=== PATIENT | female | born 1995 | race Caucasian/White ===

== ENCOUNTER 2021-07-02 16:40 | Emergency (ER) | payer SELFPAY ==
[2021-07-02 18:48] VITALS: BP 126/76; PULSE 77; RESP 18; TEMP 36.8; O2SAT 99; BMI 23.4
--- NOTE | 2021-07-02 18:51 | ECG_ITS ---
Test Reason : anxiety Blood Pressure : / mmHG Vent. Rate : 063 BPM Atrial Rate : 063 BPM P-R Int : 104 ms QRS Dur : 078 ms QT Int : 376 ms P-R-T Axes : 026 043 057 degrees QTc Int : 384 ms Sinus rhythm with sinus arrhythmia with short [place] Otherwise normal ECG No previous ECGs available Referred By: Generic ED Physician Electronically Signed By:SANDRA PEDRAZA
[2021-07-02] MEDS: Ondansetron ODT 4 MG TAB.RAPDIS TRANSLINGU (18:52)
[2021-07-03 01:22] VITALS: BP 99/68; PULSE 66; O2SAT 98
--- NOTE | 2021-07-03 01:28 | ED.PSYCH ---
HPI - Psych General Chief Complaint: General Medical Stated Complaint: Anxiety Time Seen by Provider: 07/03/21 01:26 Source: patient Mode of arrival: ambulatory Limitations: no limitations History of Present Illness HPI Narrative: Patient's history of depression insomnia anxiety PTSD asking medication came here today for anxiety denies any suicide ideation or homicidal feelings had seen the in today for recent thoughts and panic attack has not seen psychiatrists here not on any medication patient able to eat anything for last few days unable to sleep increased anxious had only few soups lost about 40 lb in last 1 year Related Data Previous Rx's Medication Instructions Recorded lorazepam 1 mg tablet (Ativan) 1 mg PO BID PRN #14 tab 07/03/21 Allergies Allergy/AdvReac Type Severity Reaction Status Date / Time No Known Allergies Allergy Verified 07/03/21 01:34 Review of Systems Review of Systems: Yes all other systems are reviewed and are negative [facility] Past Medical History Medical History (Updated 07/03/21 @ 01:42 by Parveen Vieyra MD) Anxiety Depressed Insomnia Social History Social History Advance Directives: No Advance Directives Information Provided: No Patient : No Physical Exam Vital Signs: Vital Signs: Last Vital Signs Temp 98.2 F 07/02/21 18:48 Pulse 66 07/03/21 01:22 Resp 18 07/02/21 18:48 BP 99/68 07/03/21 01:22 Pulse Ox 98 07/03/21 01:22 BMI result Body Mass Index 23.4 Appearance: Alert. Oriented X3. No acute distress. Eyes: PERRLA, No Nystagmus ENT: Pharynx normal. Oral Mucosa moist Neck: Normal inspection. Neck supple. CVS: Normal heart rate and rhythm. Pulses normal. Respiratory: No respiratory distress. Equal air entry bilateral, no wheezing/rales/rhonchi Abdomen: Soft and nontender. Bowel sounds are present, no mass palpable, no CVA tenderness Skin: Skin warm and dry. Normal skin color. Normal skin turgor. Extremities: No lower extremity edema. No calf tenderness psych: Anxious denies any suicidal ideation from her feeling no depression no hallucination Neuro: Oriented X 3. No motor deficit. No sensory deficit.No cerebellar signs , cranial nerves II-XII intact MDM - Psych Lab Data Result diagrams: 07/03/21 01:32 07/03/21 01:32 Labs: Lab Results 07/03/21 Range/Units 01:32 WBC 5.2 (4.8-10.8) X10*3/uL RBC 4.69 (4.20-5.50) X10*6/uL Hgb 12.2 (12.0-16.0) g/dl Hct 37.9 (37.0-47.0) % MCV 80.8 (80.0-98.0) fL MCH 26.0 L (27.0-33.0) pg MCHC 32.2 (31.0-35.0) g/dl RDW 12.8 (11.0-16.0) % Plt Count 221 (160-400) X10*3/uL MPV 10.3 (9.4-12.3) fL Immature Gran % (Auto) 0.0 (0.0-0.4) % Neut % (Auto) 50.0 (45-73) % Lymph % (Auto) 38.8 (20-40) % [place] % (Auto) 9.1 (2-11) % Eos % (Auto) 1.7 (0-4) % Baso % (Auto) 0.4 (0-2) % Lymph # (Auto) 2.0 (1.2-4.9) X10*3/uL [place] # (Auto) 0.5 (0.1-1.2) X10*3/uL Eos # (Auto) 0.1 (0.0-0.4) X10*3/uL Baso # (Auto) 0.0 (0.0-0.2) X10*3/uL Abs Immat Gran (auto) 0.00 (0.00-0.03) X10*3/uL Absolute Neuts (auto) 2.6 (2.0-8.3) x10*3/uL Absolute Nucleated RBC 0.000 (0.0-0.012) X10*3/uL Nucleated RBC % (auto) 0.0 (0.0-0.2) /100WBC Discharge Plan Discharge Clinical Impression: Anxiety associated with depression Patient Disposition: Home, Self-Care Instructions: Panic Disorder (ED), Anxiety (ED) Additional Instructions: Drink plenty of fluids take medication for anxiety See a psychiatrist as scheduled Prescriptions: New lorazepam [Ativan] 1 mg tablet 1 mg PO BID PRN (Reason: anxiety) Qty: 14 RF: 0
[2021-07-03 01:36] LABS: MANUAL DIFF FLAG NO
[2021-07-03 01:37] LABS: Basophils Percent Auto 0.4 % (0-2); Eosinophils Absolute Auto 0.1 X10*3/uL (0.0-0.4); Eosinophils Percent Auto 1.7 % (0-4); Hematocrit 37.9 % (37.0-47.0); Hemoglobin 12.2 g/dl (12.0-16.0); Lymphocytes Percent Auto 38.8 % (20-40); Mean Corpuscular HGB Conc 32.2 g/dl (31.0-35.0); Mean Corpuscular Volume 80.8 fL (80.0-98.0); Mean Platelet Volume 10.3 fL (9.4-12.3); Monocytes Absolute Auto 0.5 X10*3/uL (0.1-1.2); Monocytes Percent Auto 9.1 % (2-11); Neutrophils Absolute Auto 2.6 x10*3/uL (2.0-8.3); Platelet Count 221 X10*3/uL (160-400); Red Blood Count 4.69 X10*6/uL (4.20-5.50); Red Cell Distribution Width 12.8 % (11.0-16.0); White Blood Count 5.2 X10*3/uL (4.8-10.8)
[2021-07-03] MEDS: ALPRAZolam 0.5 MG TABLET PO (01:41)
[2021-07-03 01:52] LABS: COVID-19 Test Negative (Negative); IDNOW Serial# 9DD0AD1C
[2021-07-03 01:57] LABS: Alanine Aminotransferase 16 U/L (0-31); Alkaline Phosphatase 42 U/L (39-117); Anion Gap 12 (12-20); Aspartate Amino Transferase 18 U/L (5-31); Bilirubin Total 0.6 mg/dL (0.0-1.0); Blood Urea Nitrogen 7 mg/dL (9-16); Calcium 9.1 mg/dL (8.4-10.2); Carbon Dioxide 26 mmol/L (22-29); Chloride 106 mmol/L (96-108); Estimated Glomerular Filt Rate > 60; Glucose Random 88 mg/dL (60-115); Potassium 3.8 mmol/L (3.3-5.1); Sodium 140 mmol/L (135-145); Total Protein 6.7 g/dL (6.5-8.0)
[2021-07-03 02:19] VITALS: RESP 16
== END 2021-07-03 02:19 | disposition home or self-care (01) ==
PROVIDERS: Emergency Provider Internal Medicine
DX: F41.8 Other specified anxiety disorders (principal); Z20.822 Contact with and (suspected) exposure to COVID-19
CPT/HCPCS: 36415; 80053; 85025; 87635; 93005; 99283; 99284

== ENCOUNTER 2022-09-10 08:02 | Outpatient (REF) | payer MEDICAID, SELFPAY ==
--- NOTE | ~2022-09-10 | US_ITS ---
EXAMINATION: US DIAGNOSTIC ULTRASOUND BREAST, LEFT CLINICAL INFORMATION: Left subareolar mass. Patient had painful mass and was treated with antibiotics with improvement in symptomatology and palpable region.. COMPARISON: None available.. TECHNIQUE: Ultrasound of the breast is performed with real-time escalante scale imaging and color Doppler. FINDINGS: There is no focal suspicious finding. There is no solid mass, architectural abnormality, duct ectasia, or edema in the soft tissue planes. Results are discussed with the patient at time of visit. US/US breast LT limited IMPRESSION: No suspicious left breast mass in region of palpable abnormality. ASSESSMENT: BI-RADS 1: Negative RECOMMENDATION: Clinical follow-up
== END 2022-09-10 08:03 | disposition home or self-care (01) ==
LOC: HO.MAMMO 08:02
PROVIDERS: Visit Provider Emergency Medicine
DX: N63.42 Unspecified lump in left breast, subareolar (principal)
CPT/HCPCS: 76642

== ENCOUNTER 2023-01-24 10:27 | Outpatient (REF) | payer MEDICAID, SELFPAY | END 2023-01-24 10:28 | disposition home or self-care (01) | LOC: HO.CHCLNP 10:27 | PROVIDERS: Visit Provider Family Medicine | DX: Z12.4 Encounter for screening for malignant neoplasm of cervix (principal) | CPT/HCPCS: 88142 ==

== ENCOUNTER 2023-09-27 16:15 | Outpatient (REF) | payer MEDICAID, SELFPAY ==
[2023-09-29 23:54] LABS: C. trachomatis RNA TMA NOT DETECTED (NOT DETECTED); N. gonorrhoeae RNA TMA NOT DETECTED (NOT DETECTED)
== END 2023-09-27 16:16 | disposition home or self-care (01) ==
LOC: HO.CHCLNP 16:15
PROVIDERS: Visit Provider Family Medicine
DX: N76.0 Acute vaginitis (principal)
CPT/HCPCS: 36415; 81513; 87491; 87591

== ENCOUNTER 2023-11-07 13:27 | Outpatient (REF) | payer MEDICAID, SELFPAY ==
[2023-11-07 15:40] LABS: Bacterial Vaginosis PCR POSITIVE (Negative); Candida Group PCR DETECTED (Not Detect); Candida glab krusei PCR DETECTED (Not Detect); Trichomonas vaginalis PCR NOT DETECTED (Not Detect)
[2023-11-07 16:09] LABS: CT PCR NOT DETECTED (Not Detect.); NG PCR NOT DETECTED (Not Detect.)
== END 2023-11-07 13:28 | disposition home or self-care (01) ==
LOC: HO.CHCLNP 13:27
PROVIDERS: Visit Provider Family Medicine
DX: N76.0 Acute vaginitis (principal)
CPT/HCPCS: 0352U; 0353U

== ENCOUNTER 2024-01-10 11:50 | Outpatient (REF) | payer MEDICAID, SELFPAY ==
[2024-01-10 14:01] LABS: MANUAL DIFF FLAG NO
[2024-01-10 14:05] LABS: Basophils Percent Auto 0.9 % (0-2); Eosinophils Absolute Auto 0.1 X10*3/uL (0.0-0.4); Eosinophils Percent Auto 3.2 % (0-4); Hematocrit 39.3 % (37.0-47.0); Hemoglobin 12.8 g/dl (12.0-16.0); Imm Gran Abs Auto 0.01 X10*3/uL (0.00-0.03); Imm Gran Pct Auto 0.2 % (0.0-0.4); Lymphocytes Absolute Auto 1.6 X10*3/uL (1.2-4.9); Lymphocytes Percent Auto 37.1 % (20-40); Mean Corpuscular HGB Conc 32.6 g/dl (31.0-35.0); Mean Corpuscular Hemoglobin 27.1 pg (27.0-33.0); Mean Corpuscular Volume 83.3 fL (80.0-98.0); Mean Platelet Volume 11.3 fL (9.4-12.3); Monocytes Absolute Auto 0.4 X10*3/uL (0.1-1.2); Monocytes Percent Auto 8.3 % (2-11); Neutrophils Absolute Auto 2.2 x10*3/uL (2.0-8.3); Neutrophils Percent Auto 50.3 % (45-73); Platelet Count 189 X10*3/uL (160-400); Red Blood Count 4.72 X10*6/uL (4.20-5.50); Red Cell Distribution Width 14.2 % (11.0-16.0); White Blood Count 4.3 X10*3/uL (4.8-10.8)
== END 2024-01-10 11:51 | disposition home or self-care (01) ==
LOC: HO.CHCLDS 11:50
PROVIDERS: Visit Provider Student in an Organized Health Care Education/Training Program
DX: T78.40XA Allergy, unspecified, initial encounter (principal); X58.XXXA Exposure to other specified factors, initial encounter; Y93.9 Activity, unspecified; Y92.9 Unspecified place or not applicable; Y99.9 Unspecified external cause status
CPT/HCPCS: 36415; 85025

== ENCOUNTER 2024-12-13 12:55 | Outpatient (REF) | payer MEDICAID, SELFPAY ==
--- OUTSIDE RECORDS SUMMARY | 2024-12-13 15:23 | XMS_ITS | Clinical Summary ---
Author Organization [email or web address] Address [address] [place] [address] Care Team Providers Care Quality Control Inspector Name Role Phone Araceli Hoyos MD Primary Care Provider [phone] Allergies Active Allergy Reactions Criticality Noted Date Comments Coconut Fatty Acid Hives 09/08/2022 Mushroom Extract Complex (Obsolete) 12/13/2022 Medications albuterol (Ventolin HFA) 108 (90 Base) MCG/ACT inhaler INHALE 2 PUFFS EVERY 4 HOURS IF NEEDED FOR WHEEZING. 18 g 3 4 Active loratadine (Claritin) 10 MG tablet TAKE 1 TABLET BY MOUTH EVERY DAY 90 tablet 1 4 Active ergocalciferol (Vitamin D2) 1.25 MG (92239 UT) capsule TAKE 1 CAPSULE BY MOUTH ONE TIME PER WEEK 12 capsule 5 Active aspirin-acetam inophen-caffei ne (Excedrin Migraine) 250-250-65 MG tablet Take 1 tablet by mouth every 6 (six) hours if needed for headaches. 30 tablet 3 5 01/11/20 25 Active ergocalciferol (Vitamin D2) 1.25 MG (52558 UT) capsule Take 1 capsule (1.25 mg) by mouth 1 (one) time per week. 12 capsule 5 11/17/19 25 Discontinued Active Problems Problem Noted Date Diagnosed Date Reactive airway disease 03/01/2024 Other fatigue 03/01/2024 Physical exam, annual 03/01/2024 Assessment & Plan (03/01/2024 11:29 AM EDT): 28 y.o. here for her annual physical examination. Reviewed Care Gaps Vaccinations: declined today Reviewed and updated as needed PMH, PSH, PFH, PsocHx Reviewed BP and weight, nl weight and BP Allergy history, latex 09/27/2023 Tibia fracture 12/13/2022 History of iron deficiency 12/13/2022 Depression 12/13/2022 Anxiety 12/13/2022 Numbness and tingling in both hands 12/13/2022 Assessment & Plan (12/13/2022 11:40 AM EDT): Patient with strong family history of carpal tunnel, experiencing polyarthralgia, bilateral hand tingling and numbness with associated cramps. Will send for EMG for further evaluation. Polyarthralgia 12/13/2022 Excessive sweating 11/01/2022 Chronic low back pain 11/01/2022 Assessment & Plan (11/01/2022 10:31 AM EDT): Patient with chronic lower back pain. Will send for x-ray of lumbar and thoracic area. Resolved Problems Problem Noted Date Diagnosed Date Resolved Date Recurrent vaginitis 11/07/2023 03/01/20 Acute vaginitis 09/27/2023 03/01/2024 Assessment & Plan (11/08/2023 10:48 AM EDT): By appearance symptoms consistent with both BV and fungal infection, will send testing and will start patient for ppx for BV. Prescribing Diflucan, Metrogel, and Flagyl for infection treatment and prevention. Relevant Medication Fluconazole (Diflucan) 150 MG Tablet Metronidazole (Metrogel) 0.75 % Vaginal Gel Assessment & Plan (09/27/2023 3:22 PM EDT): Possible Vaginosis; Ordered SureSwab test for confirmation Overweight 11/01/2022 01/10/2024 Assessment & Plan (11/01/2022 10:30 AM EDT): Will send labs to check levels. Encounters Date Type Department Care Team Description 12/11/2024 9:30 AM EDT Telemedicine [facility] [address] [place] [address] Araceli Hoyos MD Migraine without status migrainosus, not intractable, unspecified migraine type (Primary Dx); Polyarthralgia; Gastroesophageal reflux disease without esophagitis; Mild intermittent asthma, unspecified whether complicated 12/11/2024 Travel 12/04/2024 Patient Outreach [facility] [address] [place] [address] Araceli Hoyos MD Pre-visit Planning (Pre visit planning LVM ) 11/15/2024 Refill [facility] [address] [place], [place] [id number] Tessa Baker MD from Last 3 Months Family History Medical History Relation Name Comments Ovarian cancer Other Great Aunt (mother side Developmental delay Sister Epilepsy Sister Relation Name Status Comments Other Great Aunt (mother side Sister Social History Tobacco Use Types Packs/Day Years Used Date Smoking Tobacco: Never Passive Smoke Exposure: Never Tobacco Cessation:Counseling Given: Not Answered Alcohol Use Standard Drinks/Week Comments Yes 0 (1 standard drink = 0.6 oz pur e alcohol) Depression Answer Date Recorded Patient Health Questionnaire-9 Score 4 12/11/2024 Patient Health Questionnaire-9 Score 4 12/11/2024 Last PHQ-9: Questionnaire Data Not on file 0 12/11/2024 Housing Stability Answer Date Recorded What is your housing situation today? I have carmen stewart 12/11/[address] you li ve. Do you have problems with any of the following? None of the above 12/11/2024 Food Insecurity Answer Date Recorded Within the past 12 months, y ou worried that your food would run out before you got money to buy more: Never True 12/11/2024 Within the past 12 months,th e food you bought just didn't last and you didn't have enough money to get more: Never True Transportation Answer Date Recorded In the past 12 months, has l ack of transportation kept you from medical appts, meetings, work or from getting things needed for daily living? No 12/11/2024 Utilities Answer Date Recorded In the past 12 months, has t he electric, gas, oil or water company threatened to shut off services in your home? No 12/11/2024 Depression Answer Date Recorded Patient Health Questionnaire-2 Score 2 12/11/2024 Internet Access Answer Date Recorded Internet Access Q1 No 12/11/2024 Internet Access Q2 I do not want or need it 11/19 Comments No Sex and Gender Information Value Date Recorded Sex Assigned at Female 09/08/2022 10:14 AM EDT Legal Sex Female 10:10 AM EDT Gender Identity Female 09/08/2022 10:14 AM EDT Sexual Orientation Bisexual 11/02/2022 4: 34 PM EDT Last Filed Vital Signs Vital Sign Reading Time Taken Comments Blood Pressure 103/60 03/01/2024 10:14 AM EDT Pulse 78 03/01/2024 10:14 AM EDT Temperature 37 C (98.6 F) 03/01/2024 10:14 AM EDT Respiratory Rate 20 03/01/2024 10:14 AM EDT Oxygen Saturation 99% 03/01/2024 10:14 AM EDT Inhaled Oxygen Concentration - - Weight 51.8 kg (114 lb 3.2 oz) 03/01/2024 10:14 AM EDT Height 156 cm (5' 1.42 ) 03/01/2024 10:14 AM EDT Body Mass Index 21.29 03/01/2024 10:14 AM EDT Plan of Treatment Upcoming Encounters Date Type Department Care Team (Late st Contact Info) Description 01/10/2025 8:45 AM EDT Office Visit [facility] [address] [place] [address] Araceli Hoyos MD [address] [place] [address] Health Maintenance Due Date Last Done Comments Family Planning (PISQ) 2012 Influenza Vaccine (Season Ended) 2025 COVID-19 Vaccine (1 - 2023-2 5 season) 2025 Postponed from 02/18 (Patient Refused) DTaP/Tdap/Td Vaccines (1 - Tdap) 03/01/2025 Postponed from 04/18 (Patient Refused) Pneumococcal Vaccine: Pediatrics (0 to 5 Years) and At-Risk Patients (6 to 49) Years (1 of 2 - PCV) 03/01/2025 Postponed from 03/22 (Patient Refused) Hepatitis B Vaccines (1 of 3 - 19+ 3-dose series) 03/19/2025 Postponed from 03/22 (Patient Refused) Alcohol/Substance Use Screening 12/11/2025 12/11/2024 Depression Screening 12/11/2025 12/11/2024, 12/11/2024 Disability Screening 12/11/2025 12/11/2024 SDOH Screening 12/11/2025 12/11/2024 Tobacco Screening 12/11/2025 12/11/2024 Pap Smear 01/24/2026 01/24/2023 Zoster Vaccines (1 of 2) 2047 RSV Patients and Patients Aged 60 years or older (1 - 1-dose 75+ series) 2072 HIV Screening Completed 11/09/2022 Hepatitis C Screening Completed 11/09/2022 HIB Vaccines Aged Out No longer eligi ble based on patient's age to complete this topic HPV Vaccines Aged Out No longer eligi ble based on patient's age to complete this topic Hepatitis A Vaccines Aged Out No long er eligible based on patient's age to complete this topic IPV Vaccines Aged Out No longer eligi ble based on patient's age to complete this topic Meningococcal B Vaccine Aged Out No l onger eligible based on patient's age to complete this topic Meningococcal Vaccine Aged Out No cha jannet eligible based on patient's age to complete this topic RSV under 20 months Aged Out No longe r eligible based on patient's age to complete this topic Rotavirus Vaccines Aged Out No longer eligible based on patient's age to complete this topic Procedures Procedure Name Priority Date/Time Associated Diagnosis Comments PAP SMEAR Routine 01/24/2023 10:27 AM EDT Cervical cancer screening HEPATITIS C AB W/REFL TO HCV RNA, QN, PCR Routine 11/09/2022 9:13 AM EDT Encounter for health-related screening HIV 1/2 ANTIGEN/ANTIBODY, FOURTH GENERATION W/RFL Routine 11/09/2022 9:13 AM EDT Encounter for health-related screening from Last 3 Months or Most Recently Relevant to Health Maintenance Results * Pap Smear (01/24/2023 10:27 AM EDT) Swab Cervix uteri structure / Unknown 01/24/2023 10:27 AM EDT 01/25/2023 10:40 AM EDT [facility] - 02/12/2023 4:14 PM EDT ----- ------- Name: Nona Willis Age/Sex: 27/F : 1995 Unit#: [id number] Attend Dr: Miya Richardson MD Re01/24/23 Status: [facility] REF [facility] Disch: ----- ------- SPEC : [id number] RECD: 01/25/23-1040 STATUS: MANFRED RITTERCristian NUM: [id number] JUAN: 01/24/23-[address] [facility] [address]: Miya Richardson MD ENTERED: 01/26/23-1231 SP TYPE: Pap Smr OTHR DR: ORDERED: Pap Smear Interpretation Satisfactory for evaluation. Negative for intraepithelial lesion or malignancy. Coccobacilli consistent with shift in vaginal sahnt. Mild inflammation. Clinical Information LMP:Unknown date Previous PAP test:Unknown date/findings Material Received ThinPrep-Cervical ----- ------- Signed (signature on file) Enid Richey 02/12/23 1614 ----- ------- END OF REPORT Miya Richardson MD LAB CYTOLOGY ORDERABLES Final Result Performing Organization Address [facility] Co de Phone Number [address] [phone] * Hepatitis C Antibody with Reflex to HCV, RNA, Quantitative, Real-Time PCR (11/09/2022 9:13 AM EDT) Pathologist [facility] Hepatitis C Antibody NON-REACT IAIN NON-REACT IAIN [facility] [employer] [place] [facility] Index 0.12 <1.00 [employer] [place] [facility] Comment: HCV antibody was non-reactive. There is no laboratory evidence of HCV infection. In most cases, no further action is required. However, if recent HCV exposure is suspected, a test for HCV RNA (test code 04131) is suggested. For additional information please refer to http://education.[employer]/faq/KTU35b7 (This link is being provided for informational/ educational purposes only.) Blood Venous blood specimen / Unknown 11/09/2022 9:13 AM EDT 11/09/2022 9:14 AM EDT Miya Richardson MD LAB BLOOD ORDERABLES Final Re sult Performing Organization Address City/[facility]/ZIP Co de Phone Number [facility] [address] [place] [address], [place] [address] [employer] [place] [facility] [address] [place] [address] * HIV-1/2 Antigen and Antibodies, Fourth Generation, with Reflexes (11/09/2022 9:13 AM EDT) HIV Antigen/Antibody, 4th Generation NON-REAC TIVE NON-REAC TIVE [facility] [employer] [place] [facility] Comment: HIV-1 antigen and HIV-1/HIV-2 antibodies were not detected. There is no laboratory evidence of HIV infection. PLEASE NOTE: This information has been disclosed to you from records whose confidentiality may be protected by state law. If your state requires such protection, then the state law prohibits you from making any further disclosure of the information without the specific written consent of the person to whom it pertains, or as otherwise permitted by law. A general authorization for the release of medical or other information is NOT sufficient for this purpose. For additional information please refer to http://education.[employer]/faq/ZIJ529 (This link is being provided for informational/ educational purposes only.) The performance of this assay has not been clinically validated in patients less than 2 years old. Blood Venous blood specimen / Unknown 11/09/2022 9:13 AM EDT 11/09/2022 9:14 AM EDT us Miya Richardson MD LAB BLOOD ORDERABLES Final Re sult [facility] [address], [place] [address] [employer] [place] [facility] [address] [place] [address] from Last 3 Months or Most Recently Relevant to Health Maintenance Insurance C3 Care Teams Quality Control Inspector Relationship Specialty Start Date End Date Araceli Hoyos MD [address] [place] [phone] PCP - General Family Medicine 10/22/24
[2024-12-14 12:03] LABS: Lyme Abs Screen <0.90 index
== END 2024-12-13 12:56 | disposition home or self-care (01) ==
LOC: HO.CHCLDS 12:55
PROVIDERS: Visit Provider Student in an Organized Health Care Education/Training Program
DX: M25.50 Pain in unspecified joint (principal)
CPT/HCPCS: 36415; 86617; 86618